=== PATIENT | female | born 1935 | race Hispanic/Latino ===

== ENCOUNTER 2021-12-31 13:06 | Inpatient (IN) | payer OTHER ==
[~2021-12-31] VITALS: Ht 154.9 cm; Wt 51.1 kg
[2021-12-31 13:51] LABS: BASOPHILS % (AUTO) 0.5 % (0.0-5.0); EOSINOPHILS % (AUTO) 2.4 % (0.0-8.0); HEMATOCRIT 39.3 % (36-48); LYMPHOCYTES % (AUTO) 30.4 % (21.0-51.0); MEAN CORPUSCULAR HEMOGLOBIN 28.7 pg (27.0-33.0); MEAN CORPUSCULAR HGB CONC 33.1 g/dL (32.0-36.0); MEAN CORPUSCULAR VOLUME 86.8 fL (79-99); MONOCYTES % (AUTO) 5.5 % (3.0-13.0); NEUTROPHILS % (AUTO) 60.9 % (40.0-77.0); PLATELET COUNT (AUTO) 194 K/uL (130-400); RED BLOOD CELL COUNT(AUTO) 4.53 MIL/uL (4.00-5.50); RED CELL DISTRIBUTION WIDTH 17.2 % (11.0-15.5); WHITE BLOOD COUNT (AUTO) 6.3 K/uL (4.8-10.8)
[2021-12-31 13:58] LABS: APPEARANCE,URINE CLEAR (CLEAR); BILIRUBIN,URINE NEGATIVE (NEGATIVE); COLOR,URINE YELLOW (YELLOW); GLUCOSE, URINE (UA) NEGATIVE (NEGATIVE); KETONES,URINE NEGATIVE (NEGATIVE); LEUKOCYTE ESTERASE ,URINE MODERATE (NEGATIVE); NITRATE,URINE POSITIVE (NEGATIVE); OCCULT BLOOD,URINE TRACE-INTACT (NEGATIVE); PH,URINE 6.5 (5.0-8.0); PROTEIN,URINE NEGATIVE (NEGATIVE); UROBILINOGEN,URINE 0.2 mg/dL (0.2-1.0)
[2021-12-31 14:05] LABS: BACTERIA,URINE Many /HPF (None Seen); RBC,URINE 0-1 /HPF (0-1); SQUAMOUS EPITHELIAL CELL,UR Rare /HPF (0-2)
[2021-12-31 14:15] LABS: ALBUMIN 3.2 g/dL (3.5-5.0); BILIRUBIN,TOTAL 0.6 mg/dL (0.2-1.0); CREATININE 1.3 mg/dL (0.5-1.5); POTASSIUM 4.2 mmol/L (3.5-5.1); TOTAL PROTEIN, SERUM 7.6 g/dL (6.0-8.3)
[2021-12-31] MEDS ORDERED: CEFTRIAXONE 1G VIAL IVP ONE (15:00)
[2021-12-31] MEDS ORDERED: FUROSEMIDE 20MG VIAL IV ONE (16:00)
[2021-12-31] MEDS ORDERED: ASPIRIN 81MG CHEW TAB PO ONE (17:30)
[2021-12-31] MEDS ORDERED: ATOR40TA69 PO (17:41)
[2021-12-31] MEDS ORDERED: AMLO-258 PO (17:42)
[2021-12-31] MEDS ORDERED: PANT40TA54 PO (17:42)
[2021-12-31] MEDS ORDERED: DICY10CA13 PO (17:43)
[2021-12-31] MEDS ORDERED: TRAM50TA4 PO (17:44)
[2021-12-31] MEDS ORDERED: GLIP2.5T2 PO (17:45)
[2021-12-31] MEDS ORDERED: NON-FORMULARY MEDICATION 1 EACH (Dicyclomine HCl 10 MG) PO SCH (21:00)
[2021-12-31] MEDS: DICYCLOMINE HCL 20 MG TAB PO SCH (21:52)
[2022-01-01 00:40] VITALS: BP 112/63
[2022-01-01 04:00] VITALS: BP 103/60
[2022-01-01 06:23] LABS: CHOLESTEROL 101 mg/dL (<200); HDL CHOLESTEROL 31 mg/dL (35-85); LDL DIRECT 55 mg/dL (0-99); TRIGLYCERIDES 62 mg/dL (30-200)
[2022-01-01 06:59] LABS: BASOPHILS % (AUTO) 0.4 % (0.0-5.0); EOSINOPHILS % (AUTO) 3.1 % (0.0-8.0); HEMATOCRIT 34.8 % (36-48); LYMPHOCYTES % (AUTO) 32.3 % (21.0-51.0); MEAN CORPUSCULAR HEMOGLOBIN 28.8 pg (27.0-33.0); MEAN CORPUSCULAR HGB CONC 32.8 g/dL (32.0-36.0); MEAN CORPUSCULAR VOLUME 87.9 fL (79-99); MONOCYTES % (AUTO) 6.2 % (3.0-13.0); NEUTROPHILS % (AUTO) 57.6 % (40.0-77.0); PLATELET COUNT (AUTO) 190 K/uL (130-400); RED BLOOD CELL COUNT(AUTO) 3.96 MIL/uL (4.00-5.50); RED CELL DISTRIBUTION WIDTH 17.1 % (11.0-15.5); WHITE BLOOD COUNT (AUTO) 6.8 K/uL (4.8-10.8)
[2022-01-01 07:11] LABS: CREATININE 1.2 mg/dL (0.5-1.5); POTASSIUM 4.1 mmol/L (3.5-5.1)
[2022-01-01 07:38] LABS: HEMOGLOBIN A1C 5.9 % (4.0-6.0)
[2022-01-01 08:00] VITALS: BP 107/47
[2022-01-01] MEDS ORDERED: AMLODIPINE 5 MG TAB PO SCH (09:00)
[2022-01-01] MEDS ORDERED: NON-FORMULARY MEDICATION 1 EACH (Amlodipine Besylate 10 MG) PO SCH (09:00)
[2022-01-01] MEDS: ASPIRIN 81MG CHEW TAB PO SCH (09:59)
[2022-01-01] MEDS: CEFTRIAXONE 1G VIAL IVP SCH (09:59)
[2022-01-01] MEDS: DICYCLOMINE HCL 20 MG TAB PO SCH ×3 (09:59→19:53)
[2022-01-01] MEDS: ATORVASTATIN 40 MG TABLET PO SCH (09:59)
[2022-01-01] MEDS: PANTOPRAZOLE 40 MG TAB DR PO SCH (10:00)
[2022-01-01 11:58] VITALS: BP 99/47
[2022-01-01] MEDS ORDERED: ISOSORBIDE MONO 30MG SR TAB PO SCH (15:00)
[2022-01-01 16:00] VITALS: BP 103/63
[2022-01-01 20:00] VITALS: BP 126/68
[2022-01-02] VITALS (7 sets, daily range): BP systolic 104–143; BP diastolic 46–69
[2022-01-02] MEDS ORDERED: ACETAMINOPHEN 325 MG TAB PO PRN ×2 (00:30)
[2022-01-02] MEDS ORDERED: HYDROCODONE/ACETAMINOPHEN 5/325 MG TAB PO ONE (00:30)
[2022-01-02 06:10] LABS: BASOPHILS % (AUTO) 0.3 % (0.0-5.0); EOSINOPHILS % (AUTO) 3.4 % (0.0-8.0); HEMATOCRIT 32.1 % (36-48); LYMPHOCYTES % (AUTO) 41.9 % (21.0-51.0); MEAN CORPUSCULAR HEMOGLOBIN 28.5 pg (27.0-33.0); MEAN CORPUSCULAR VOLUME 86.3 fL (79-99); MONOCYTES % (AUTO) 7.2 % (3.0-13.0); PLATELET COUNT (AUTO) 177 K/uL (130-400); RED BLOOD CELL COUNT(AUTO) 3.72 MIL/uL (4.00-5.50); RED CELL DISTRIBUTION WIDTH 17.1 % (11.0-15.5); WHITE BLOOD COUNT (AUTO) 5.8 K/uL (4.8-10.8)
[2022-01-02 06:37] LABS: ALBUMIN 2.7 g/dL (3.5-5.0); BILIRUBIN,TOTAL 0.4 mg/dL (0.2-1.0); CREATININE 1.3 mg/dL (0.5-1.5); POTASSIUM 3.9 mmol/L (3.5-5.1); TOTAL PROTEIN, SERUM 6.5 g/dL (6.0-8.3)
[2022-01-02] MEDS: CEFTRIAXONE 1G VIAL IVP SCH (08:34)
[2022-01-02] MEDS: ASPIRIN 81MG CHEW TAB PO SCH (08:34)
[2022-01-02] MEDS: ATORVASTATIN 40 MG TABLET PO SCH (08:34)
[2022-01-02] MEDS: PANTOPRAZOLE 40 MG TAB DR PO SCH (08:34)
[2022-01-02] MEDS: DICYCLOMINE HCL 20 MG TAB PO SCH ×3 (08:35→21:53)
[2022-01-02] MEDS: ISOSORBIDE MONO 30MG SR TAB PO SCH (08:35)
[2022-01-02] MEDS: MEROPENEM 1 GM VIAL IVP SCH (12:50)
[2022-01-03] MEDS: MEROPENEM 1 GM VIAL IVP SCH (00:05)
[2022-01-03 05:08] VITALS: BP 107/62
[2022-01-03 08:00] VITALS: BP 141/70
[2022-01-03] MEDS ORDERED: APIXABAN 2.5 MG TABLET PO SCH (09:00)
[2022-01-03] MEDS ORDERED: APIX2.5T PO (09:03)
[2022-01-03] MEDS: ATORVASTATIN 40 MG TABLET PO SCH (09:09)
[2022-01-03] MEDS: ISOSORBIDE MONO 30MG SR TAB PO SCH (09:09)
[2022-01-03] MEDS: DICYCLOMINE HCL 20 MG TAB PO SCH (09:09)
[2022-01-03] MEDS: PANTOPRAZOLE 40 MG TAB DR PO SCH (09:09)
[2022-01-03] MEDS ORDERED: SULF1TAB42 PO (10:46)
[2022-01-03] MEDS ORDERED: LACT1CAP90 PO (10:50)
[2022-01-03 11:00] VITALS: BP 97/54
[2022-01-03 11:10] VITALS: BP 97/54
== END 2022-01-03 12:30 | disposition home or self-care (01) | DRG 690 ==
LOC: EDH 13:06 → OBSVTOIN 17:24 → EDHIP 17:24 → 4BH 01-01 01:41
PROVIDERS: ADMIT Internal Medicine; ATTEND Internal Medicine
DX: N39.0 Urinary tract infection, site not specified (principal); I48.20 Chronic atrial fibrillation, unspecified; I69.351 Hemiplegia and hemiparesis following cerebral infarction affecting right dominant side; R07.89 Other chest pain; E11.9 Type 2 diabetes mellitus without complications; E78.00 Pure hypercholesterolemia, unspecified; F03.90 Unspecified dementia, unspecified severity, without behavioral disturbance, psychotic disturbance, mood disturbance, and anxiety; E87.70 Fluid overload, unspecified; I10 Essential (primary) hypertension; E78.5 Hyperlipidemia, unspecified; T78.8XXA Other adverse effects, not elsewhere classified, initial encounter; X58.XXXA Exposure to other specified factors, initial encounter; K21.9 Gastro-esophageal reflux disease without esophagitis; Z79.01 Long term (current) use of anticoagulants; Z88.0 Allergy status to penicillin; Z87.898 Personal history of other specified conditions
CPT/HCPCS: 36415; 71045; 80048; 80053; 80061; 81001; 82550; 83036; 83735; 83880; 84443; 84484; 85025; 87077; 87088; 87186; 93005; 93306; 93356; G0378; J0696; J1940; J2185